=== PATIENT | male | born 1955 | race Caucasian/White ===

== ENCOUNTER 2018-01-16 13:33 | Emergency (ER) | payer BC ==
[2018-01-16] MEDS ORDERED: Cephalexin 500 MG Cap PO ONE (14:32)
[2018-01-16] MEDS ORDERED: Lidocaine 1% 50 ML MDV INJECT ONE (14:32)
--- NOTE | 2018-01-16 15:55 | EDM.PDOC ---
ED HPI GENERAL MEDICAL PROBLEM - General Chief Complaint: Laceration Stated Complaint: LAC ON RIGHT CHEEK Time Seen by Provider: 01/16/18 14:08 Source of Information: Reports: Patient, RN Notes Reviewed - History of Present Illness INITIAL COMMENTS - FREE TEXT/NARRATIVE: 63-year-old male comes in with right facial laceration. This occurred about 90 minutes ago working on his "[email or web address]". He states he slipped, fail and right struck sharp edge with resultant laceration of the mid area of his right jaw. Was a fair amount of bleeding initially. He was able to grab a towel and with pressure able to control the bleeding. He did not suffer other injury to the head neck back. Unsure of his last tetanus immunization. He does have history of a right shoulder replacement this past summer about 8 or 9 months ago and does have serious concern about avoiding and reducing risk for any type of infection that could possibly transfer to his shoulder. No major jaw discomfort. He feels like his teeth are well aligned. No major pain with jaw motion. Right Lower Face Pain Score (Numeric/FACES): 2 - Related Data Allergies Allergy/AdvReac Type Severity Reaction Status Date / Time No Known Allergies Allergy Verified 04/14/14 13:40 Home Meds: Home Meds Cephalexin 500 mg PO Q6HR #30 capsule 01/16/18 [Rx] Lisinopril 10 mg PO DAILY 01/16/18 [History] Past Medical History - Past Health History Medical/Surgical History: Denies Medical/Surgical History Cardiovascular History: Reports: Hypertension Social & Family History - Tobacco Use Smoking Status *Q: Never Smoker Second Hand Smoke Exposure: No - Caffeine Use Caffeine Use: Reports: None - Alcohol Use Days Per Week of Alcohol Use: 0 - Recreational Drug Use Recreational Drug Use: No ED ROS GENERAL - Review of Systems Review Of Systems: See Below HEENT: Reports: Other (4 cm vertical deep laceration right face, area of right mid jaw, no active bleeding) Respiratory: Denies: Pleuritic Chest Pain Cardiovascular: Denies: Chest Pain GI/Abdominal: Denies: Abdominal Pain, Nausea, Vomiting Musculoskeletal: Denies: Neck Pain, Shoulder Pain, Arm Pain, Back Pain Skin: Reports: No Symptoms Neurological: Denies: Numbness, Tingling ED EXAM, SKIN/RASH Exam: See Below General Appearance: Alert, No Apparent Distress Eye Exam: Bilateral Eye: PERRL Ears: Normal External Exam Nose: Normal Inspection Throat/Mouth: Normal Inspection Head: Other (4 cm vertical laceration area of right mid jaw, moderately deep, gaping, no foreign material seen) Neck: Supple, Full Range of Motion Respiratory/Chest: No Respiratory Distress, Lungs Clear Cardiovascular: Regular Rate, Rhythm GI/Abdominal: Soft, Non-Tender Extremities: Normal Inspection, Normal Range of Motion Neurological: Alert, Oriented, No Motor/Sensory Deficits Skin: Warm, Dry, Normal Color ED SKIN PROCEDURES - Laceration/Wound Repair Right Face Lac/Wound length In cm: 3.5 Appearance: Linear Distal NVT: Neuro & Vascular Intact, Other (Good sensation all around the area of injury) Anesthetic Type: Local Local Anesthesia - Lidocaine (Xylocaine): 1% Plain Skin Prep: Saline Exploration/Debridement/Repair: Wound Explored Suture Size: 4-0 Suture Type: Nylon # of Sutures: 12 Course - Vital Signs Last Recorded V/S: Last Vital Signs Temp 97.6 F 01/16/18 13:51 Pulse 82 01/16/18 13:51 Resp 16 01/16/18 13:51 BP 160/96 H 01/16/18 13:51 Pulse Ox 95 01/16/18 13:51 - Orders/Labs/Meds Meds: Medications Discontinued Medications Generic Name Dose Route Start Last Admin Trade Name Lito PRN Reason Stop Dose Admin Cephalexin 500 mg 01/16/18 14:32 01/16/18 15:12 Keflex PO 01/16/18 14:33 500 mg ONETIME ONE Administration Lidocaine HCl 50 ml 01/16/18 14:32 01/16/18 15:12 Xylocaine 1% INJECT 01/16/18 14:33 50 ml ONETIME ONE Administration - Re-Assessments/Exams Free Text/Narrative Re-Assessment/Exam: 01/16/18 19:23 Patient was given cephalexin 500 mg orally at time of suture repair. Patient tolerated procedure well, discharge instructions as documented. Departure - Departure Time of Disposition: 15:52 Disposition: Home, Self-Care 01 Condition: Fair Clinical Impression: Facial laceration Qualifiers: Encounter type: initial encounter Qualified Code(s): S01.81XA - Laceration without foreign body of other part of head, initial encounter - Discharge Information Prescriptions: Cephalexin 500 mg PO Q6HR #30 capsule Instructions: Facial Laceration Referrals: Dallas Gage MD [Primary Care Provider] - Forms: ED Department Discharge Additional Instructions: Laceration care instructions, antibiotic ointment 2-3 times daily or with each dressing change. ice packs 2-3 times daily to help reduce swelling, sleep with head elevated above chest to also help reduce swelling, keep protected with large Band-Aid or appropriate dressing when in the field working, stitches out in 8 days, there is no charge if you have those taken out at our associated [facility] medical clinic. Cephalexin antibiotic 500 mg 4 times daily for 1 week or until gone, have rechecked any sign of infection
== END 2018-01-16 16:00 | disposition home or self-care (01) ==
LOC: JD.ED 13:33
DX: S01.81XA Laceration without foreign body of other part of head, initial encounter (principal); I10 Essential (primary) hypertension; W01.118A Fall on same level from slipping, tripping and stumbling with subsequent striking against other sharp object, initial encounter
CPT/HCPCS: 12013; 99283; A9270

== ENCOUNTER 2018-01-25 06:39 | Emergency (ER) | payer BC | END 2018-01-25 06:57 | disposition home or self-care (01) | LOC: JD.ED 06:39 | DX: S01.81XD Laceration without foreign body of other part of head, subsequent encounter (principal); W01.118D Fall on same level from slipping, tripping and stumbling with subsequent striking against other sharp object, subsequent encounter ==

== ENCOUNTER 2024-05-19 18:25 | Emergency (ER) | payer MEDICARE, OTHER ==
[2024-05-19] MEDS ORDERED: Sodium Chloride 0.9% 10 ML Syringe FLUSH PRN (18:50)
[2024-05-19 18:58] LABS: HEMATOCRIT 46.9 % (42.0-52.0); HEMOGLOBIN 15.7 gm/dl (14.0-18.0); MEAN CORPUSCULAR HEMOGLOBIN 31.2 pg (28.0-32.0); MEAN CORPUSCULAR HGB CONC 33.5 g/dl (32.0-36.0); MEAN CORPUSCULAR VOLUME 93.2 fl (83.0-99.0); MEAN PLATELET VOLUME 9.3 fl (9.4-12.4); PLATELET COUNT,PLT 299 K/mm3 (150-400); RED BLOOD CELL COUNT 5.03 M/mm3 (4.52-5.90); WHITE BLOOD CELL COUNT,WBC 8.63 K/mm3 (3.9-11.3)
[2024-05-19 19:14] LABS: INR 1.03; PROTHROMBIN TIME 10.9 SECONDS (9.7-12.0)
[2024-05-19 19:15] LABS: PTT,PARTIAL THROMBOPLSTIN TIME 25.2 SECONDS (21.7-31.4)
[2024-05-19 19:30] LABS: ALBUMIN 4.2 g/dl (3.4-5.0); ANION GAP 13.4 (5-15); BILIRUBIN TOTAL 0.5 mg/dL (0.2-1.0); BUN/CREATININE RATIO 15.4 (14-18); C-REACTIVE PROTEIN <0.05 mg/dL (<0.30); CALCIUM 9.2 mg/dL (8.5-10.1); CREATININE 1.3 mg/dL (0.7-1.3); EST CRCL DRUG DOSING (CG) 44.91 mL/min; POTASSIUM,K 4.4 mEq/L (3.5-5.1); PROTEIN TOTAL,TP 8.3 g/dl (6.4-8.2)
[2024-05-19 19:58] LABS: BAND PERCENT MAN 0 % (0-10); BASOPHILS PERCENT MAN 0 (0.2-1.2); EOSINOPHILS PERCENT MAN 2 % (0.8-7.0); LYMPHOCYTES % ATYPICAL MANUAL 0 %; LYMPHOCYTES PERCENT MAN 29 % (20-40); MONOCYTES PERCENT MAN 5 % (2-10)
[2024-05-19 19:59] LABS: PLATELET COUNT ESTIMATE ADEQUATE
== END 2024-05-19 21:22 | disposition home or self-care (01) ==
LOC: JD.ED 18:25
DX: R07.89 Other chest pain (principal); I10 Essential (primary) hypertension; Z79.899 Other long term (current) drug therapy
CPT/HCPCS: 36415; 71045; 71045-26; 80053; 83735; 84484; 85007; 85027; 85610; 85730; 86140; 93005; 99285